=== PATIENT | female | born 1995 | race Two or more races ===

== ENCOUNTER 2018-01-18 16:24 | Emergency (ER) | payer MEDICAID ==
[~2018-01-18] VITALS: Ht 160 cm; Wt 59.0 kg
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
[2018-01-18] MEDS ORDERED: HYDROcodone/Acetamin 10/325 tab ORAL ONE (17:00)
[2018-01-18] MEDS ORDERED: ACETAMINOPHEN-1 EAC1 ORAL (18:04)
[2018-01-18] MEDS ORDERED: IBUPROFEN600 MG ORAL ×2 (18:04→18:12)
[2018-01-18] MEDS ORDERED: CIPROFLOXACIN500 M2 ORAL (18:04)
[2018-01-18 18:26] VITALS: BP 132/92
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
== END 2018-01-18 18:30 | disposition home or self-care (01) ==
LOC: EMR 17:15
DX: S91.331A Puncture wound without foreign body, right foot, initial encounter (principal); W56.81XA Bitten by other nonvenomous marine animals, initial encounter; Y92.832 Beach as the place of occurrence of the external cause; Z88.0 Allergy status to penicillin
CPT/HCPCS: 99284